=== PATIENT | female | born 1995 ===

== ENCOUNTER 2020-12-21 15:26 | Outpatient (CLI) | payer OTHER | END 2020-12-21 16:58 | disposition home or self-care (01) | LOC: PRENATAL 15:26 | PROVIDERS: ATTEND Obstetrics & Gynecology Maternal & Fetal Medicine | DX: O35.0XX1 Maternal care for (suspected) central nervous system malformation in fetus, fetus 1 (principal); O35.3XX1 Maternal care for (suspected) damage to fetus from viral disease in mother, fetus 1; O98.512 Other viral diseases complicating pregnancy, second trimester; O09.212 Supervision of pregnancy with history of pre-term labor, second trimester; Z36.89 Encounter for other specified antenatal screening; Z3A.24 24 weeks gestation of pregnancy ==

== ENCOUNTER 2021-03-31 18:18 | Inpatient (IN) | payer OTHER ==
[~2021-03-31] VITALS: Ht 152.4 cm; Wt 75.3 kg
[2021-03-31] MEDS ORDERED: PRENATAL TABLE1 EAC1 PO (19:31)
== END 2021-04-03 15:47 | disposition home or self-care (01) | DRG 788 ==
LOC: OB/GYN 18:18 → LDR 18:18 → OB/GYN 04-01
PROVIDERS: Obstetrics & Gynecology; ADMIT Obstetrics & Gynecology; ATTEND Obstetrics & Gynecology
PROC: 4A1HXFZ Monitoring of Products of Conception, Cardiac Rhythm, External Approach (ICD-10-PCS; 2021-03-31)
PROC: 10D00Z1 Extraction of Products of Conception, Low, Open Approach (ICD-10-PCS; principal; 2021-03-31 19:00)
DX: O34.211 Maternal care for low transverse scar from previous cesarean delivery (principal); O75.82 Onset (spontaneous) of labor after 37 completed weeks of gestation but before 39 completed weeks gestation, with delivery by (planned) cesarean section; Z3A.38 38 weeks gestation of pregnancy; Z37.0 Single live birth